=== PATIENT | female | born 2005 | race Caucasian/White ===

== ENCOUNTER 2023-04-12 09:30 | Outpatient (CLI) | payer OTHER ==
[2023-04-12] MEDS ORDERED: Iopamidol-370 76% 500 ML MDV (1 ML CHARGE) ONE (09:33)
== END 2023-04-12 09:31 | disposition home or self-care (01) ==
LOC: BICCT 09:30
PROVIDERS: ATTEND Student in an Organized Health Care Education/Training Program
DX: H93.A2 Pulsatile tinnitus, left ear (principal); H93.93 Unspecified disorder of ear, bilateral
CPT/HCPCS: 70496; Q9967